=== PATIENT | male | born 1955 | race Asian ===

== ENCOUNTER 2022-04-24 15:15 | Emergency (ER) | payer OTHER ==
[~2022-04-24] VITALS: Ht 152.4 cm; Wt 72.7 kg
[2022-04-24] MEDS ORDERED: LIDOCAINE 1% HCL (LOCAL ANESTH.) INJ 20ML MDV ID ONE (21:30)
[2022-04-24] MEDS ORDERED: TETANUS-DIPTH-ACEL PERTUSSIS 0.5ML SYR Tdap IM ONE (21:45)
[2022-04-24] MEDS ORDERED: ONDA-144 PO (22:26)
[2022-04-24] MEDS ORDERED: HYDR-4902 PO (22:26)
[2022-04-24] MEDS ORDERED: CEPH-510 PO (22:26)
[2022-04-24 22:30] VITALS: BP 144/90
[2022-04-24] MEDS ORDERED: HYDROcodone-ACET 5/325MG TAB PO ONE (22:30)
[2022-04-24] MEDS ORDERED: ONDANSETRON ODT 4 MG TAB PO ONE (22:30)
== END 2022-04-24 22:47 | disposition home or self-care (01) ==
LOC: EDBD 15:15 → ER 15:19
DX: S62.633A Displaced fracture of distal phalanx of left middle finger, initial encounter for closed fracture (principal); S61.213A Laceration without foreign body of left middle finger without damage to nail, initial encounter; F17.210 Nicotine dependence, cigarettes, uncomplicated; Z79.899 Other long term (current) drug therapy; W20.8XXA Other cause of strike by thrown, projected or falling object, initial encounter; Y93.89 Activity, other specified; Y92.89 Other specified places as the place of occurrence of the external cause; Y99.0 Civilian activity done for income or pay
CPT/HCPCS: 12002; 29130; 73130; 90471; 90715; 99283; J2001; Q0162